=== PATIENT | female | born 1945 | race African-American/Black ===

== ENCOUNTER 2020-11-27 23:42 | Emergency (ER) | payer OTHER ==
--- OUTSIDE RECORDS SUMMARY | 2020-11-27 23:44 | XMS REPORT | Summary of Care ---
:1945 Author Organization [facility] Address [address] [place] [address] Care Team Providers Name Role Phone Jero Phelps Primary Care Provider Reason for Visit Reason Comments Pre-op Clearance [facility] Gasto[facility]ology Encounter Details Date Type Department Care Team Description 08/29/2020 Telephone [facility] DySISmedical Patsy Shelton Pre-op Cleara nce ([place] [facility]- [place] [facility]) [address], [address] [place] [address] Allergies Active Allergy Reactions Severity Noted Date Comments Codeine Nausea and/or 05/19/2019 Vomiting Prochlorperazine Edisylate Other - See comments 2018 Iodine And Iodide Hives, Shortness of High 07/18/2019 Hot feeling. 25 Containing Products Breath, Other - See y ears ago with IV comments contrast. Atorvastatin Calcium Unknown - See 02/26/2020 Myalgi as at 40 mg comments daily. Penicillins Hives 05/19/2019 documented as of this encounter (statuses as of 08/31/2020) Medications Medication Sig Dispensed Refills Start Date End Date Status spironolactone 25 Take 25 mg 0 A ctive mg tablet by mouth daily. diazePAM 5 mg Take 2.5 mg 0 Acti ve tablet by mouth 3 (three) times daily. baclofen 20 mg Take 20 mg 0 Acti ve tablet by mouth as needed. traMADOL 50 mg Take 50 mg 0 Acti ve tablet by mouth 2 (two) times daily. aspirin 81 mg Take 1 90 tablet 3 07/31/2019 Activ e chewable tablet by tabletIndications: mouth daily. Coronary artery disease of [place] heart with stable angina pectoris, unspecified vessel or lesion type, S/P cardiac catheterization, Coronary artery disease involving [place] coronary artery of [place] heart with unstable angina pectoris famotidine (PEPCID) Take 1 60 tablet 3 07/30/2019 Active 20 mg tablet by tabletIndications: mouth every Coronary artery 12 (twelve) disease of [place] hours. heart with stable angina pectoris, unspecified vessel or lesion type, S/P cardiac catheterization, Coronary artery disease involving [place] coronary artery of [place] heart with unstable angina pectoris clopidogrel 75 mg Take 1 30 tablet 11 07/31/2019 A ctive tabletIndications: tablet by Coronary artery mouth daily. disease of [place] heart with stable angina pectoris, unspecified vessel or lesion type, S/P cardiac catheterization, Coronary artery disease involving [place] coronary artery of [place] heart with unstable angina pectoris nitroglycerin 0.[address] Place 1 30 tablet 0 07/30/2019 A ctive mg sublingual tablet under tabletIndications: the tongue Coronary artery every 5 disease of [place] (five) heart with stable minutes as angina pectoris, needed for unspecified vessel Chest pain. or lesion type, S/P cardiac catheterization, Coronary artery disease involving [place] coronary artery of [place] heart with unstable angina pectoris famotidine (PEPCID) Take 1 3 tablet 0 07/18/2019 Discontinued 20 mg tablet tablet by 0 (Duplic ate) mouth every 12 (twelve) hours. Start day before procedure. Take last dose morning of procedure. 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 unstable angina pectoris NSTEMI (non-ST elevated myocardial infarction) 019 Essential hypertension 07/29/2019 documented as of this encounter (statuses as of 08/31/2020) Social History Tobacco Use Types Packs/Day Years Used Date Never Smoker Smokeless Tobacco: Never Used Sex Assigned at Date Recorded Not on file documented as of this encounter Last Filed Vital Signs Not on filedocumented in this encounter Miscellaneous Notes Telephone Encounter - Patsy Shelton MD - 08/31/2020 9:00 PM CDTForm completed in ADC elephone Encounter - Helga Plummer MA - 08/29/2020 9:12 AM CDT Clearance for EGD received. Placed on Dr. Shelton's [facility] desk for review. Will fax back once completed. documented in this encounter Plan of Treatment Date Type Specialty Care Team Description 09/06/2020 [facility] Room 1 - 09/06/2020 [facility] Visit [facility] Room 1 - 02/27/2021 Office Visit Cardiology Patsy Shelton MD [address] [place] [address] [phone] Health Maintenance Due Date Last Done Comments Depression Screening 1955 DTaP,Tdap,and Td Vaccines (1 - Tdap) 1962 Zoster Recombinant Vaccine (SHINGRIX) (1 of 2) 1993 Medicare Wellness Visit 2008 Osteoporosis Screening 2008 PNEUMOCOCCAL VACCINES 65+ (1 of 1 - PPSV23) 2008 INFLUENZA VACCINE (#1) 2020 documented as of this encounter Results Not on filedocumented in this encounter Insurance Payer Benefit Plan / Subscriber ID Effective Phone Address T [facility] [id number] 2018-Pres Medica re HEALTHCARE - HEALTHCARE ent Adv HM O MANAGED MEDICARE ADV MEDICARE HMO [place] BCBS FED [id number] 2019-Pre [phone] O BOX PPO/POS SELECT sent [phone] [place] [address] documented as of this encounter
--- OUTSIDE RECORDS SUMMARY | 2020-11-27 23:44 | XMS REPORT | Summary of Care ---
:1945 Author Organization [facility] [place] Address [address] [place] [address] Care Team Providers Name Role Phone Jero Phelps Primary Care Provider Reason for Visit Reason Comments LAB Covid test, + exposure Encounter Details Date Type Department Care Team Description 10/11/2020 Laboratory Only [facility] Family MelanieGuanako, YOUTH MANAGER [address] [place] [address] Exposure to Medicine - [facility], Ad[facility] Fam Pob I SARS-associated [address] [place] [address] coronaviru s (Primary Drive Dx) [place] [address] Allergies Active Allergy Reactions Severity Noted Date [...] as of this encounter (statuses as of 10/11/2020) Medications Medication Sig Dispensed Refills Start Date End Date Status spironolactone 25 mg Take 25 mg by 0 Active tablet mouth daily. diazePAM 5 mg tablet Take 2.5 mg by 0 Active mouth 3 (three) times daily. baclofen 20 mg tablet Take 20 mg by 0 Active mouth as needed. traMADOL 50 mg tablet Take 50 mg by 0 Active mouth 2 (two) times daily. aspirin 81 mg chewable Take 1 tablet by 90 tablet 3 07/31/2019 Active tabletIndications: mouth daily. Coronary artery disease of [place] heart with stable angina pectoris, unspecified vessel or lesion type, S/P cardiac catheterization, Coronary artery disease involving [place] coronary artery of [place] heart with unstable angina pectoris famotidine (PEPCID) 20 Take 1 tablet by 60 tablet 3 07/30/2019 Active mg tabletIndications: mouth every 12 Coronary artery disease (twelve) hours. of [place] heart with stable angina pectoris, unspecified vessel or lesion type, S/P cardiac catheterization, Coronary artery disease involving [place] coronary artery of [place] heart with unstable angina pectoris clopidogrel 75 mg Take 1 tablet by 30 tablet 11 07/31/2019 Active tabletIndications: mouth daily. Coronary artery disease of [place] heart with stable angina pectoris, unspecified vessel or lesion type, S/P cardiac catheterization, Coronary artery disease involving [place] coronary artery of [place] heart with unstable angina pectoris nitroglycerin 0.[address] 1 tablet 30 tablet 0 07/30/2019 Active sublingual under the tongue tabletIndications: every 5 (five) Coronary artery disease minutes as of [place] heart with needed for Chest stable angina pectoris, pain. 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 documented as of this encounter Last Filed Vital Signs Not on filedocumented in this encounter Nursing Notes Jane Almaguer, HERMES - 10/11/2020 11:20 AM CSTTran Herberth Stevenson is a 75 year old female here for a Rule Out Covid-19 Nasopharyngeal Swab. Patient educated on plan of care for visit, swabbing technique, risks and benefits of test and length oftime to receive results. Verbal consent obtained to perform test. CDC Fact Sheet for Patients provided to patient. All droplet and contact precautions taken with appropriate PPE worn while interacting with patient. - Goggles - N95 Mask - Gloves - Gown RR=20 O2 Sat=97% Patient swabbed using appropriate nasopharyngeal technique, and patient tolerated well. Patient was discharged in stable condition. Jane Terry RN 10/11/2020 11:42 AM FILTER TANK TENDER documented in this encounter Plan of Treatment Date Type Specialty Care Team Description 02/27/2021 Office Visit Cardiology Patsy Shelton MD [address] [place] [address] [phone] Name Type Priority Associated Diagnoses Order S chedujesus COVID-19 (MOLECULAR LAB Routine Exposure to Expected : 10/11/2020, TESTING SARS-associated Expires: 021 NUCLEIC ACID coronavirus AMPLIFICATION) Health Maintenance Due Date Last Done Comments Depression Screening 1955 DTaP,Tdap,and Td Vaccines (1 - Tdap) 1962 Zoster Recombinant Vaccine (SHINGRIX) (1 of 2) 1993 Medicare Wellness Visit 2008 Osteoporosis Screening 2008 PNEUMOCOCCAL VACCINES 65+ (1 of 1 - PPSV23) 2008 INFLUENZA VACCINE (#1) 2020 documented as of this encounter Results Not on filedocumented in this encounter Visit Diagnoses Diagnosis Exposure to SARS-associated coronavirus - Primary documented in this encounter Additional Health Concerns Infection Onset Date Last Indicated Resolved Time COVID-19 Rule Out 10/11/2020 10/11/2020 documented as of this encounter Insurance Payer Benefit Plan / Subscriber ID Effective Phone Address T e Group [facility] [id number] 2018-Prese Medic are Adv HEALTHCARE - HEALTHCARE nt HMO MANAGED MEDICARE ADV MEDICARE HMO documented as of this encounter
--- OUTSIDE RECORDS SUMMARY | 2020-11-27 23:44 | XMS REPORT | Summary of Care ---
:1945 Author Organization [facility] Address [address] [place] [address] Care Team Providers Name Role Phone Jero Phelps Primary Care Provider Reason for Visit (Routine) Status Reason Specialty Diagnoses / Referred By Referred To Procedures Contact Contact Closed Vascular Surgery Diagnoses Dyslipidemia Family history of premature CAD Coronary artery disease involving [place] coronary artery of [place] heart without angina pectoris Essential hypertension Pain of lower extremity, unspecified laterality Patsy Shelton Procedures GLORIA WITH STRESS BY VASCULAR LAB MD [place] [address] [address] Encounter Details Date Type Department Care Team Description 09/06/2020 Appointment [facility] Patsy Shelton MD [address] [address] Pain of lower Cardiology- [facility], [facility] V[facility] Room 1 - extremity, unspecified [address] [place] [address] Allergies Active Allergy Reactions Severity Noted [...] as of this encounter (statuses as of 09/09/2020) Medications Medication Sig Dispensed Refills Start Date [...] tabletIndications: mouth daily. Coronary artery disease of [place] heart with stable angina pectoris, unspecified vessel or lesion type, S/P cardiac catheterization, Coronary artery disease involving [place] coronary artery of [place] heart with unstable angina pectoris famotidine (PEPCID) 20 Take 1 tablet by 60 tablet 3 07/30/2019 Active mg tabletIndications: mouth every 12 Coronary artery disease (twelve) hours. of [place] heart with stable angina pectoris, unspecified vessel or lesion type, S/P cardiac catheterization, Coronary artery disease involving [place] coronary artery of [place] heart with unstable angina pectoris clopidogrel 75 mg Take 1 tablet by 30 tablet 11 07/31/2019 Active tabletIndications: mouth daily. Coronary artery disease of [place] heart with stable angina pectoris, unspecified vessel or lesion type, S/P cardiac catheterization, Coronary artery disease involving [place] coronary artery of [place] heart with unstable angina pectoris nitroglycerin 0.[address] 1 tablet 30 tablet 0 07/30/2019 Active sublingual under the tongue tabletIndications: every 5 (five) Coronary artery disease minutes as of [place] heart with needed for Chest stable angina pectoris, pain. 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/29/2019 with unstable angina pectoris NSTEMI (non-ST elevated myocardial infarction) 019 Essential hypertension 07/29/2019 documented as of this encounter (statuses as of 09/09/2020) Social History Tobacco Use Types Packs/Day Years Used Date Never Smoker Smokeless Tobacco: Never Used Sex Assigned at Date Recorded Not on file documented as of this encounter Last Filed Vital Signs Not on filedocumented in this encounter Plan of Treatment Date Type Specialty Care Team Description 02/27/2021 Office Visit Cardiology Patsy Shelton MD [address] [place] [address] [phone] Health Maintenance Due Date Last Done Comments Depression Screening 1955 DTaP,Tdap,and Td Vaccines (1 - Tdap) 1962 Zoster Recombinant Vaccine (SHINGRIX) (1 of 2) 1993 Medicare Wellness Visit 2008 Osteoporosis Screening 2008 PNEUMOCOCCAL VACCINES 65+ (1 of 1 - PPSV23) 2008 INFLUENZA VACCINE (#1) 2020 documented as of this encounter Results Not on filedocumented in this encounter Visit Diagnoses Diagnosis Pain of lower extremity, unspecified lat erality documented in this encounter Insurance Payer Benefit Plan / Subscriber ID Effective Phone Address T e Group Dates [facility] [id number] 2018-Prese Medic are Adv HEALTHCARE - HEALTHCARE nt HMO MANAGED MEDICARE ADV MEDICARE HMO documented as of this encounter
--- OUTSIDE RECORDS SUMMARY | 2020-11-27 23:44 | XMS REPORT | Clinical Summary ---
:1945 Author Organization [facility] Address [address] [place] [address] Care Team Providers Name Role Phone Asked, Pcp Primary Care Provider Unavailable Allergies Not on File Medications Not on file Active Problems Problem Noted Date Bilateral carpal tunnel syndrome Cervical radiculopathy at C7 Cervical radiculopathy at C8 Social History Tobacco Use Types Packs/Day Years Used Date Never Assessed Sex Assigned at Date Recorded Not on file Last Filed Vital Signs Not on file Plan of Treatment Health Maintenance Due Date Last Done Comments COVID-19 VACCINE (#1) 1959 SHINGLES VACCINES (#1) 1993 65+ PNEUMOCOCCAL VACCINE (1 of 1 - PPSV23) 2008 INFLUENZA VACCINE 06/22/2020 Results Not on fileafter 11/27/2019 (Work) [id number] Advance Directives For more information, please contact: [phone] Type Date Recorded Patient Digital Analyst Explanati on Advance Directives, Living Will and Medical Power of Automotive Design Layout Drafter
--- OUTSIDE RECORDS SUMMARY | 2020-11-27 23:44 | XMS REPORT | Continuity of Care Document ---
:1945 Author Organization [facility] t Address [address] [place] [address] Care Team Providers Name Role Phone Asked, Pcp Primary Care Physician Unavailable Lab, Fam Pob I Attending Clinician Unavailable Pc, Vascular Room 1 - Attending Clinician Unavailable Nikita LOUIS, K.H. Attending Clinician Problems Condition Condition Condition Status Onset Resolution Last Treating Co mments Source Name Details Category Date Date Treatment Clinician Date Bilateral Bilateral Disease Active Praneeth ston carpal carpal Methodi tunnel tunnel st syndrome syndrome Cervical Cervical Disease Active [place] on radiculopa radiculopa Me thodi thy at C8 thy at C8 st Allergies, Adverse Reactions, Alerts This patient has no known allergies or adverse reactions. Social History Social Habit Start Date Stop Date Quantity Comments Source Sex Assigned At Praneeth ston [employer] Medications This patient has no known medications. Procedures This patient has no known procedures. Plan of Care Planned Activity Planned Date Details Comments Source Future Scheduled 2020-06-22 INFLUENZA VACCINE [place] [employer] [facility] Test 00:00:00 [code = INFLUENZA VACCINE] Future Scheduled 2008 65+ PNEUMOCOCCAL [place] [employer] Test 00:00:00 VACCINE (1 of 1 - PPSV23) [code = 65+ PNEUMOCOCCAL VACCINE (1 of 1 - PPSV23)] Future Scheduled 1993 SHINGLES VACCINES (#1) [facility] [employer] Test 00:00:00 [code = SHINGLES VACCINES (#1)] Future Scheduled 1959 COVID-19 VACCINE (#1) [facility] [employer] Test 00:00:00 [code = COVID-19 VACCINE (#1)] Encounters Start End Encounter Admission Attending Care Care Encounter Source Date/Time Date/Time Type Type Clinicians Facility Department ID 2020-10-11 2020-10-11 Laboratory Lab, [facility] [id number] 11:35:42 11:55:42 Only Fam Pob I Health [id number] [place] [id number] Professio [phone] nal 044 Office Building One 2020-09-06 2020-09-06 Analytical Clerk Pc, [facility] [id number] 14:58:24 15:49:38 Visit Vascular [place] [id number] Room 1 - [place] [id number] Professio [phone] nal 059 Building 2020-09-06 2020-09-06 Appointmen Pc, [facility] [id number] 14:57:18 15:49:28 t Vascular [place] [id number] Room 1 - [place] [id number] Professio [phone] nal 059 [facility] 2020-08-29 2020-08-29 Telephone Nikita [facility] [id number] 00:00:00 00:00:00 Patsy Sage [place] [id number] [place] [id number] Professio [phone] nal 9 [facility] Results This patient has no known results.
--- OUTSIDE RECORDS SUMMARY | 2020-11-27 23:44 | XMS REPORT | Summary of Care ---
:1945 Author Organization [facility] Address [address] [place] [address] Care Team Providers Name Role Phone Lenin Jero Primary Care Provider Reason for Visit Reason Comments ULTRASOUND (Routine) Status Reason Specialty Diagnoses / Procedures Referred By C ontact Referred To Contact Closed Cardiology Diagnoses Dyslipidemia Family history of premature CAD Coronary artery disease involving [place] coronary artery of [place] heart without angina pectoris Essential hypertension Pain of lower extremity, unspecified laterality Patsy Shelton Procedures CAROTID DUPLEX BILATERAL BY VASCULAR LAB MD [place] [address] [address] Phone: Encounter Details Date Type Department Care Team Description 09/06/2020 Dovetailer Visit [facility] Pats[facility] Shelton MD [address] [facility] [address] [address] Dyslipidemia; Cardiology- [facility], Adc Vascular Room 1 - Family history of premature CAD; [facility] Coronary art duane disease involving [place] coronary artery of [place] heart without angina pectoris; Drive, [address] Essential hypertension; [place], [place] Pain of lower e xtremity, unspecified laterality [address] Allergies Active Allergy Reactions Severity Noted [...] as of this encounter (statuses as of 09/06/2020) Medications Medication Sig Dispensed Refills Start Date [...] tabletIndications: mouth daily. Coronary artery disease of [place] heart with stable angina pectoris, unspecified vessel or lesion type, S/P cardiac catheterization, Coronary artery disease involving [place] coronary artery of [place] heart with unstable angina pectoris famotidine (PEPCID) 20 Take 1 tablet by 60 tablet 3 07/30/2019 Active mg tabletIndications: mouth every 12 Coronary artery disease (twelve) hours. of [place] heart with stable angina pectoris, unspecified vessel or lesion type, S/P cardiac catheterization, Coronary artery disease involving [place] coronary artery of [place] heart with unstable angina pectoris clopidogrel 75 mg Take 1 tablet by 30 tablet 11 07/31/2019 Active tabletIndications: mouth daily. Coronary artery disease of [place] heart with stable angina pectoris, unspecified vessel or lesion type, S/P cardiac catheterization, Coronary artery disease involving [place] coronary artery of [place] heart with unstable angina pectoris nitroglycerin 0.[address] 1 tablet 30 tablet 0 07/30/2019 Active sublingual under the tongue tabletIndications: every 5 (five) Coronary artery disease minutes as of [place] heart with needed for Chest stable angina pectoris, pain. 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 07/29/2019 with unstable angina pectoris NSTEMI (non-ST elevated myocardial infarction) 019 Essential hypertension 07/29/2019 documented as of this encounter (statuses as of 09/06/2020) Social History Tobacco Use Types Packs/Day Years Used Date Never Smoker Smokeless Tobacco: Never Used Sex Assigned at Date Recorded Not on file documented as of this encounter Last Filed Vital Signs Not on filedocumented in this encounter Plan of Treatment Date Type Specialty Care Team Description 02/27/2021 Office Visit Cardiology Patsy Shelton MD [address] [place] [phone] Health Maintenance Due Date Last Done Comments Depression Screening 1955 DTaP,Tdap,and Td Vaccines (1 - Tdap) 1962 Zoster Recombinant Vaccine (SHINGRIX) (1 of 2) 1993 Medicare Wellness Visit 2008 Osteoporosis Screening 2008 PNEUMOCOCCAL VACCINES 65+ (1 of 1 - PPSV23) 2008 INFLUENZA VACCINE (#1) 2020 documented as of this encounter Results Not on filedocumented in this encounter Visit Diagnoses Diagnosis Dyslipidemia Other and unspecified hyperlipidemia Family history of premature CAD Family history of ischemic heart disease Coronary artery disease involving [place] coronary artery of [place] heart without angina pectoris Essential hypertension Unspecified essential hypertension Pain of lower extremity, unspecified lat erality documented in this encounter Insurance Payer Benefit Plan / Subscriber ID Effective Phone Address T e Group [facility] [id number] 2018-Prese Medic are Adv HEALTHCARE - HEALTHCARE nt HMO MANAGED MEDICARE ADV MEDICARE HMO documented as of this encounter
[2020-11-28] MEDS ORDERED: MORPHINE 2 MG/ML SYR ONE (00:37)
[2020-11-28] MEDS ORDERED: ONDANSETRON 4 MG/2 ML VIAL ONE (00:38)
[2020-11-28] MEDS ORDERED: NA CHLORIDE 0.9% 1,000 ML ONE (00:38)
[2020-11-28] MEDS ORDERED: KETOROLAC 30 MG/ML INJ ONE (00:38)
[2020-11-28] MEDS ORDERED: NA CHLORIDE 0.9% 500 ML ONE (00:38)
[2020-11-28 01:16] LABS: Urine Blood NEGATIVE (NEG); Urine Glucose NEGATIVE (NEG); Urine Protein NEGATIVE (NEG); Urine Specific Gravity 1.015 (1.005-1.030)
[2020-11-28 01:21] LABS: Absolute Lymphocytes (CBC) 1.8 K/uL (0.7-4.9); Basophils % 0.7 % (0-1.3); Hematocrit 38.7 % (36.0-45.0); Lymphocytes % 25.9 % (15.3-44.8); MPV 7.3 fL (7.6-11.3)
[2020-11-28 01:37] LABS: ALT/SGPT 11 U/L (12-78); AST/SGOT 14 U/L (15-37); Albumin 3.1 g/dL (3.4-5.0); Alkaline Phosphatase 113 U/L (45-117); BUN Blood Urea Nitrogen 12 mg/dL (7-18); Bicarbonate 31 mmol/L (21-32); Bilirubin Direct < 0.1 mg/dL (0-0.2); Bilirubin Total 0.2 mg/dL (0.2-1.0); Glucose Level 93 mg/dL (74-106); Lipase 99 U/L (73-393); Potassium 3.9 mmol/L (3.5-5.1); Protein, Total 7.6 g/dL (6.4-8.2); Sodium Level 145 mmol/L (136-145)
[2020-11-28] MEDS ORDERED: dexAMETHasone 10 MG/ML VIAL ONE (01:53)
[2020-11-28] MEDS ORDERED: DIAZEPAM 5 MG TABLET ONE (01:53)
[2020-11-28] MEDS ORDERED: LIDOCAINE 4% PATCH ONE (03:04)
--- NOTE | 2020-11-28 03:51 | EDPHYS ---
Physician Documentation [facility] Name: Tran Stevenson Age: 75 yrs Sex: Female : 1945 Arrival Date: 11/27/2020 Time: 23:45 Bed 24 Private MD: Davy Phelps B ED Physician Shaquille Smith HPI: 11/28 00:09 This 75 yrs old Black Female presents to ER via Unassigned with complaints of Back Pain.kacie 00:09 The patient presents with pain that is acute, with no known mechanism of injury. The kacie symptoms are located in the right mid back and right low back. Onset: The symptoms/episode began/occurred 3 day(s) ago. The pain radiates to the suprapubic area, posterior aspect of right lateral abdomen, anterior aspect of right lateral abdomen and right lower quadrant. Associated signs and symptoms: The patient has no apparent associated signs or symptoms. The problem was sustained from unknown cause. Modifying factors: The patient symptoms are alleviated by nothing, the patient symptoms are aggravated by movement, supine position, walking. Severity of symptoms: At their worst the symptoms were mild, moderate, in the emergency department the symptoms are unchanged. The patient has not experienced similar symptoms in the past. Historical: - Allergies: 11/27 23:46 ACETAMINOPHEN; sg 23:46 Darvocet-N 100; sg 23:46 Darvon; sg 23:46 PENICILLINS; sg 23:46 PHENOTHIAZINES; sg 23:46 Propoxyphene HCl; sg - PMHx: 23:46 cervical stenosis; FIBROCYSTIC DISEASE; Hypertension; Osteoporosis; sciatica; sg - PSHx: 23:46 Hysterectomy; bilateral lumpectomy; sg - Immunization history:: Adult Immunizations up to date. - Social history:: Smoking status: Patient denies any tobacco usage or history of. - Family history:: not pertinent. ROS: 11/28 00:09 Constitutional: Negative for fever, chills, and weight loss, Eyes: Negative for injury, kacie pain, redness, and discharge, ENT: Negative for injury, pain, and discharge, Neck: Negative for injury, pain, and swelling, Cardiovascular: Negative for chest pain, palpitations, and edema, Respiratory: Negative for shortness of breath, cough, wheezing, and pleuritic chest pain, Abdomen/GI: Negative for abdominal pain, nausea, vomiting, diarrhea, and constipation, : Negative for injury, bleeding, discharge, and swelling, MS/Extremity: Negative for injury and deformity, Skin: Negative for injury, rash, and discoloration, Neuro: Negative for headache, weakness, numbness, tingling, and seizure, Psych: Negative for depression, anxiety, suicide ideation, homicidal ideation, and hallucinations, Allergy/Immunology: Negative for hives, rash, and allergies, Endocrine: Negative for neck swelling, polydipsia, polyuria, polyphagia, and marked weight changes, Hematologic/Lymphatic: Negative for swollen nodes, abnormal bleeding, and unusual bruising. Back: Positive for flank pain, on the right. Exam: 00:09 Constitutional: This is a well developed, well nourished patient who is awake, alert, kacie and in no acute distress. Head/Face: Normocephalic, atraumatic. Eyes: Pupils equal round and reactive to light, extra-ocular motions intact. Lids and lashes normal. Conjunctiva and sclera are non-icteric and not injected. Cornea within normal limits. Periorbital areas with no swelling, redness, or edema. ENT: Nares patent. No nasal discharge, no septal abnormalities noted. Tympanic membranes are normal and external auditory canals are clear. Oropharynx with no redness, swelling, or masses, exudates, or evidence of obstruction, uvula midline. Mucous membranes moist. Neck: Trachea midline, no thyromegaly or masses palpated, and no cervical lymphadenopathy. Supple, full range of motion without nuchal rigidity, or vertebral point tenderness. No Meningismus. Chest/axilla: Normal chest wall appearance and motion. Nontender with no deformity. No lesions are appreciated. Cardiovascular: Regular rate and rhythm with a normal S1 and S2. No gallops, murmurs, or rubs. Normal PMI, no JVD. No pulse deficits. Respiratory: Lungs have equal breath sounds bilaterally, clear to auscultation and percussion. No rales, rhonchi or wheezes noted. No increased work of breathing, no retractions or nasal flaring. Abdomen/GI: Soft, non-tender, with normal bowel sounds. No distension or tympany. No guarding or rebound. No evidence of tenderness throughout. Female : Normal external genitalia. Skin: Warm, dry with normal turgor. Normal color with no rashes, no lesions, and no evidence of cellulitis. MS/ Extremity: Pulses equal, no cyanosis. Neurovascular intact. Full, normal range of motion. Neuro: Awake and alert, GCS 15, oriented to person, place, time, and situation. Cranial nerves II-XII grossly intact. Motor strength 5/5 in all extremities. Sensory grossly intact. Cerebellar exam normal. Normal gait. Psych: Awake, alert, with orientation to person, place and time. Behavior, mood, and affect are within normal limits. 00:09 Back: pain, that is moderate, ROM is normal, normal spinal alignment noted, CVA tenderness, that is moderate, is noted on the right, muscle spasm, is not present. 03:47 Skin: no rash present. [facility] Vital Signs: 11/27 23:45 BP 145 / 92; Pulse 89; Resp 18; Temp 98.2; Pulse Ox 100% ; Pain 9/10; jv1 11/28 00:45 BP 140 / 89; Pulse 88; Resp 18; Temp 98.0; Pulse Ox 97% ; Pain 8/10; jv1 01:45 BP 135 / 87; Pulse 85; Resp 18; Temp 97.8; Pulse Ox 100% ; jv1 02:45 BP 131 / 87; Pulse 78; Resp 18; Temp 97.5; Pulse Ox 100% ; jv1 03:45 BP 134 / 89; Pulse 85; Resp 18; Temp 98.1; Pulse Ox 100% ; jv1 04:20 BP 137 / 77; Pulse 79; Resp 18; Temp 98; Pulse Ox 100% ; Pain 2/10; jv1 MDM: 11/27 23:53 Patient medically screened. [facility] 11/28 00:11 Differential diagnosis: Fatigue Renal Infarction Scoliosis sprain, Ureterolithiasis kacie vertebral fracture. Data reviewed: vital signs, nurses notes, EMS record, lab test result(s), radiologic studies, CT scan. Data interpreted: certification officer: rate is 78 beats/min, rhythm is regular, Pulse oximetry: on room air is 96 %. Test interpretation: by ED physician or midlevel provider: plain radiologic studies. Counseling: I had a detailed discussion with the patient and/or guardian regarding: the historical points, exam findings, and any diagnostic results supporting the discharge/admit diagnosis, lab results, radiology results. 11/28 00:08 Order name: Basic Metabolic Panel; Complete Time: 01:47 [facility] 11/28 00:08 Order name: CBC with Diff; Complete Time: 01:27 [facility] 11/28 00:08 Order name: Hepatic Function; Complete Time: 01:47 [facility] 11/28 00:08 Order name: Lipase; Complete Time: 01:47 [facility] 11/28 00:08 Order name: Urine Culture [facility] 11/28 01:11 Order name: Urine Dipstick--Ancillary (enter results); Complete Time: 01:27 mw2 11/28 00:08 Order name: CT Stone Protocol [facility] 11/28 01:25 Order name: Hip Right 2 View XRAY [facility] 11/28 01:25 Order name: Sed Rate; Complete Time: 02:40 [facility] 11/28 01:33 Order name: CT Abd/Pelvis - IV Contrast Only: scan through right hip, upper thigh [facility] 11/28 00:08 Order name: IV Saline Lock; Complete Time: 01:10 [facility] 11/28 00:08 Order name: Labs collected and sent; Complete Time: 03:04 [facility] 11/28 00:08 Order name: Urine Dipstick-Ancillary (obtain specimen); Complete Time: 01:10 [facility] Administered Medications: 00:45 Drug: Zofran (Ondansetron) 4 mg Route: IVP; Site: left antecubital; jv1 01:39 Follow up: Response: No adverse reaction jv1 00:48 Drug: morphine 2 mg {Note: x1.} Route: IVP; Site: left antecubital; jv1 01:30 Follow up: Response: No adverse reaction jv1 00:50 Drug: TORadol - Ketorolac 15 mg Route: IVP; Site: left antecubital; jv1 01:39 Follow up: Response: No adverse reaction; Pain is decreased jv1 00:55 Drug: NS 0.9% 500 ml Route: IV; Rate: bolus; Site: left antecubital; jv1 01:20 Follow up: Response: No adverse reaction; IV Status: Completed infusion jv1 01:20 Drug: NS 0.9% 1000 ml Route: IV; Rate: 125 ml/hr; Site: left antecubital; mg2 04:20 Follow up: Response: No adverse reaction; IV Status: Order to discontinue infusion jv1 01:40 Drug: Valium 5 mg Route: PO; jv1 03:19 Follow up: Response: No adverse reaction jv1 01:41 Drug: Decadron - Dexamethasone 10 mg {Note: admistered slow over 2 mins.} Route: IVP; jv1 Site: left antecubital; 03:20 Follow up: Response: No adverse reaction jv1 02:50 Drug: Lidoderm 5 % (700 mg/patch) 1 patches {Note: given the lidocain patch 4% as per jv1 doctor's instructions.} Route: Topical; Site: affected area; 04:23 Follow up: Response: No adverse reaction; Pain is decreased jv1 04:29 Follow up: Response: No adverse reaction; Pain is decreased jv1 Disposition: 11/28/20 03:50 Discharged to Home. Impression: Low back pain, Abdominal tenderness, Sciatica, right side, Pain in right hip - arthritic. - Condition is Stable. - Discharge Instructions: Abdominal Pain, Adult, Joint Pain, Arthritis, Back Pain, Adult, Chronic Back Pain, Musculoskeletal Pain, Sciatica, Cryotherapy, Olky-ny-Hrlo, Abdominal Pain, Adult, Dqag-lo-Ielf, Back Pain, Adult, Iiuz-wf-Widp, Hip Pain, Sciatica, Vkqg-vr-Ssok, Joint Pain, Lrri-uv-Mctt. - Prescriptions for dexamethasone 2 mg Oral tablet - take 1 tablet by ORAL route 2 times per day; 10 tablet. Valium 2 mg Oral Tablet - take 1 tablet by ORAL route every 8 hours As needed; 20 tablet. Tramadol 50 mg Oral Tablet - take 1 tablet by ORAL route every 8 hours as needed; 26 tablet. Motrin IB 200 mg Oral Tablet - take 1 tablet by ORAL route every 6 hours As needed as needed with food; 2 tablet. - Medication Reconciliation Form, Thank You Letter, Antibiotic Education, Prescription Opioid Use form. - Follow up: Davy Phelps MD; When: 1 - 2 days; Reason: Recheck today's complaints, Continuance of care, Re-evaluation by your physician. Follow up: Sergio Ellis MD; When: 2 - 3 days; Reason: Recheck today's complaints, Re-evaluation by your physician. - Problem is new. - Symptoms have improved. Signatures: Dispatcher [employer] EDWeston Pagan RN RN sg Anderson, Corey, MD MD cha Antunez, Elena, RN Orlin Colindres ea, RN Elodia Allen, RN RN jv1 Corrections: (The following items were deleted from the chart) 01:42 01:31 Abdomen Pelvis W Con+CT.RAD.BRZ ordered. EDMS EDMS 04:49 03:50 11/28/2020 03:50 Discharged to Home. Impression: Low back pain; Abdominal sg tenderness; Sciatica, right side; Pain in right hip - arthritic. Condition is Stable. Forms are Medication Reconciliation Form, Thank You Letter, Antibiotic Education, Prescription Opioid Use. Follow up: Davy Phelps; When: 1 - 2 days; Reason: Recheck today's complaints, Continuance of care, Re-evaluation by your physician. Follow up: Sergio Ellis; When: 2 - 3 days; Reason: Recheck today's complaints, Re-evaluation by your physician. Problem is new. Symptoms have improved. kacie
--- NOTE | 2020-11-28 03:51 | ER ---
Nurse's Notes [facility] Name: Tran Stevenson Age: 75 yrs Sex: Female : 1945 Arrival Date: 11/27/2020 Time: 23:45 Bed 24 Private MD: Davy Phelps B Diagnosis: Low back pain;Abdominal tenderness;Sciatica, right side;Pain in right hip-arthritic Presentation: 11/27 23:45 Chief complaint: EMS states: pt has back pain, reports lower back for several days, no sg injury or trauma reported. Coronavirus screen: Client denies travel out of the [place] in the last 14 days. At this time, the client does not indicate any symptoms associated with coronavirus-19. Ebola Screen: Patient negative for fever greater than or equal to 101.5 degrees Fahrenheit, and additional compatible Ebola Virus Disease symptoms Patient denies exposure to infectious person. Patient denies travel to an Ebola-affected area in the 21 days before illness onset. No symptoms or risks identified at this time. Initial Sepsis Screen: Does the patient meet any 2 criteria? No. Patient's initial sepsis screen is negative. Does the patient have a suspected source of infection? No. Patient's initial sepsis screen is negative. Risk Assessment: Do you want to hurt yourself or someone else? Patient reports no desire to harm self or others. Onset of symptoms was November 25, 2020. Care prior to arrival: None. Transition of care: patient was not received from another setting of care. 23:45 Method Of Arrival: EMS: [facility] sg 23:45 Acuity: CHUY 3 sg Historical: - Allergies: 23:46 ACETAMINOPHEN; sg 23:46 Darvocet-N 100; sg 23:46 Darvon; sg 23:46 PENICILLINS; sg 23:46 PHENOTHIAZINES; sg 23:46 Propoxyphene HCl; sg - PMHx: 23:46 cervical stenosis; FIBROCYSTIC DISEASE; Hypertension; Osteoporosis; sciatica; sg - PSHx: 23:46 Hysterectomy; bilateral lumpectomy; sg - Immunization history:: Adult Immunizations up to date. - Social history:: Smoking status: Patient denies any tobacco usage or history of. - Family history:: not pertinent. Screenin/07 00:00 Abuse screen: Denies threats or abuse. Denies injuries from another. Nutritional jv1 screening: No deficits noted. Tuberculosis screening: No symptoms or risk factors identified. Fall Risk None identified. Assessment: 11/27 23:45 General: Appears in no apparent distress. uncomfortable, well groomed, well developed, jv1 Behavior is calm, cooperative, appropriate for age. Pain: Complains of pain in right low back and right mid back Pain radiates to abdomen and right lower quadrant and anterior aspect of right lateral abdomen and posterior aspect of right lateral abdomen and suprapubic area Pain currently is 9 out of 10 on a pain scale. Quality of pain is described as aching. Neuro: Level of Consciousness is awake, alert, obeys commands, Oriented to person, place, time, situation, Appropriate for age Miter Operator are equal bilaterally Moves all extremities. Cardiovascular: Denies chest pain. Respiratory: Airway is patent Respiratory effort is even, unlabored, Respiratory pattern is regular, symmetrical, Breath sounds are clear bilaterally. GI: Abdomen is round non-distended, Bowel sounds present X 4 quads. Abd is soft and non tender X 4 quads. : No signs and/or symptoms were reported regarding the genitourinary system. EENT: No signs and/or symptoms were reported regarding the EENT system. Derm: No signs and/or symptoms reported regarding the dermatologic system. Skin is intact, is healthy with good turgor. Musculoskeletal:. Musculoskeletal:. 11/28 01:00 Reassessment: Patient appears in no apparent distress at this time. No changes from jv1 previously documented assessment. Patient and/or family updated on plan of care and expected duration. Pain level reassessed. Patient is alert, oriented x 3, equal unlabored respirations, skin warm/dry/pink. assisted to use bedpan. 02:00 Reassessment: Patient appears in no apparent distress at this time. No changes from jv1 previously documented assessment. Patient and/or family updated on plan of care and expected duration. Pain level reassessed. Patient is alert, oriented x 3, equal unlabored respirations, skin warm/dry/pink. assisted to use bedpan. 03:30 Reassessment: Patient appears in no apparent distress at this time. No changes from jv1 previously documented assessment. Patient and/or family updated on plan of care and expected duration. Pain level reassessed. Patient is alert, oriented x 3, equal unlabored respirations, skin warm/dry/pink. assisted to use bedpan. 04:20 Reassessment: Patient appears in no apparent distress at this time. Patient and/or jv1 family updated on plan of care and expected duration. Pain level reassessed. Patient is alert, oriented x 3, equal unlabored respirations, skin warm/dry/pink. assisted pt to stand and then walk a little then sit on the wheelchair. She was able to do it with min pain. 2/10 Patient states feeling better. Patient states symptoms have improved. Vital Signs: 11/27 23:45 BP 145 / 92; Pulse 89; Resp 18; Temp 98.2; Pulse Ox 100% ; Pain 9/10; jv1 11/28 00:45 BP 140 / 89; Pulse 88; Resp 18; Temp 98.0; Pulse Ox 97% ; Pain 8/10; jv1 01:45 BP 135 / 87; Pulse 85; Resp 18; Temp 97.8; Pulse Ox 100% ; jv1 02:45 BP 131 / 87; Pulse 78; Resp 18; Temp 97.5; Pulse Ox 100% ; jv1 03:45 BP 134 / 89; Pulse 85; Resp 18; Temp 98.1; Pulse Ox 100% ; jv1 04:20 BP 137 / 77; Pulse 79; Resp 18; Temp 98; Pulse Ox 100% ; Pain 2/10; jv1 ED Course: 11/27 23:45 Patient arrived in ED. sg 23:45 Davy Phelps MD is Private Physician. sg 23:46 Arm band placed on. sg 23:53 Shaquille Smith MD is Attending Physician. kacie 11/28 00:00 Patient has correct armband on for positive identification. Bed in low position. Call jv1 light in reach. Side rails up X2. 00:28 Triage completed. sg 00:45 CT Stone Protocol In Process Unspecified. EDMS 02:03 Hip Right 2 View XRAY In Process Unspecified. EDMS 02:43 CT Abd/Pelvis - IV Contrast Only: scan through right hip, upper thigh In Process EDMS Unspecified. 03:48 Davy Phelps MD is Referral Physician. kacie 03:50 Sergio Ellis MD is Referral Physician. kacie 04:27 No provider procedures requiring assistance completed. Inserted IV discontinued, jv1 intact, bleeding controlled, No redness/swelling at site. Pressure dressing applied. Administered Medications: 00:45 Drug: Zofran (Ondansetron) 4 mg Route: IVP; Site: left antecubital; jv1 01:39 Follow up: Response: No adverse reaction jv1 00:48 Drug: morphine 2 mg {Note: x1.} Route: IVP; Site: left antecubital; jv1 01:30 Follow up: Response: No adverse reaction jv1 00:50 Drug: TORadol - Ketorolac 15 mg Route: IVP; Site: left antecubital; jv1 01:39 Follow up: Response: No adverse reaction; Pain is decreased jv1 00:55 Drug: NS 0.9% 500 ml Route: IV; Rate: bolus; Site: left antecubital; jv1 01:20 Follow up: Response: No adverse reaction; IV Status: Completed infusion jv1 01:20 Drug: NS 0.9% 1000 ml Route: IV; Rate: 125 ml/hr; Site: left antecubital; mg2 04:20 Follow up: Response: No adverse reaction; IV Status: Order to discontinue infusion jv1 01:40 Drug: Valium 5 mg Route: PO; jv1 03:19 Follow up: Response: No adverse reaction jv1 01:41 Drug: Decadron - Dexamethasone 10 mg {Note: admistered slow over 2 mins.} Route: IVP; jv1 Site: left antecubital; 03:20 Follow up: Response: No adverse reaction jv1 02:50 Drug: Lidoderm 5 % (700 mg/patch) 1 patches {Note: given the lidocain patch 4% as per jv1 doctor's instructions.} Route: Topical; Site: affected area; 04:23 Follow up: Response: No adverse reaction; Pain is decreased jv1 04:29 Follow up: Response: No adverse reaction; Pain is decreased jv1 Outcome: 03:50 Discharge ordered by . kacie 04:27 Discharged to home via wheelchair. jv1 04:27 Condition: stable 04:27 Discharge instructions given to patient, Instructed on discharge instructions, follow up and referral plans. medication usage, Demonstrated understanding of instructions, follow-up care, medications, Prescriptions given X 4. 04:49 Patient left the ED. sg Signatures: Dispatcher [employer] EDMS Weston Lowery RN RN Shaquille Alcala MD MD cha Gardose, Michele RN RN mg2 Elodia Lloyd RN RN jv1 Corrections: (The following items were deleted from the chart) 00:29 11/27 23:45 Acuity: CHUY 4 cintia chamberlain
--- NOTE | 2020-11-28 08:52 | RAD REPORT ---
EXAM DESCRIPTION: RAD - Hip Right 2 View - 11/28/2020 2:03 am CLINICAL HISTORY: PAIN COMPARISON: Stone Protocol dated 11/28/2020; Abdomen Pelvis W Contrast dated 11/28/2020 FINDINGS: Moderately severe osteoarthritic changes affect the right hip. No acute fracture, dislocat ion or AVN observed.
--- NOTE | 2020-11-28 18:40 | RAD REPORT ---
EXAM DESCRIPTION: CT ABDOMEN AND PELVIS WITH CONTRAST CLINICAL HISTORY: Right hip pain;Abd pain;Flank pain COMPARISON: 11/28/2020 TECHNIQUE: CT of the abdomen and pelvis performed following IV administration of iodinated contras t.. FINDINGS: Lung Bases: Minimal bibasilar opacities may be related to dependent atelectasis. Bones: Mild joint space narrowing of the hips bilaterally. Degenerative endplate spondylosis and face t arthropathy of the spine. Abdomen: Liver: Enhancing hyperdensity in the right hepatic lobe is stable likely representing a flash filling hemangioma. Hepatic cysts are stable. Mild prominence of the common bile duct likely related to prio r cholecystectomy.. Gallbladder: Prior cholecystectomy. Spleen, Pancreas, and Adrenal Glands: The spleen, pancreas, and adrenal glands are unremarkable. Kidneys: No hydronephrosis or obstructing calculus. Right renal cyst. Vasculature: Aortoiliac atherosclerosis. IVC is unremarkable. The portal vein is patent. The proxim al visceral and renal arteries are patent. Stomach: The stomach and duodenum have normal course. Other: No free intraperitoneal air. Trace free fluid. Tiny fat-containing umbilical hernia. Pelvis: Bladder: Urinary bladder is unremarkable. Bowel: No dilated loops of large or small bowel. Appendix: Normal appendix. Pelvis: Prior hysterectomy. IMPRESSION: 1. No acute inflammatory or obstructive process identified. This exam was performed according to our departmental dose-optimization program, which includes autom ated exposure control, adjustment of the mA and/or kV according to patient size and/or use of iterati ve reconstruction technique. Electronically signed by: Jomar Magaña 11/28/2020 3:20 AM BAIL BONDING AGENT Due to temporary technical issues with the PACS/Fluency reporting system, reports are being signed by the in house radiologists without review as a courtesy to insure prompt reporting. The interpreting radiologist is fully responsible for the content of the report.
--- NOTE | 2020-11-28 19:23 | RAD REPORT ---
EXAM DESCRIPTION: CT ABDOMEN AND PELVIS WITH CONTRAST CLINICAL HISTORY: Right hip pain;Abd pain;Flank pain COMPARISON: 11/28/2020 TECHNIQUE: CT of the abdomen and pelvis performed following IV administration of iodinated contras t.. FINDINGS: Lung Bases: Minimal bibasilar opacities may be related to dependent atelectasis. Bones: Mild joint space narrowing of the hips bilaterally. Degenerative endplate spondylosis and face t arthropathy of the spine. Abdomen: Liver: Enhancing hyperdensity in the right hepatic lobe is stable likely representing a flash filling hemangioma. Hepatic cysts are stable. Mild prominence of the common bile duct likely related to prio r cholecystectomy.. Gallbladder: Prior cholecystectomy. Spleen, Pancreas, and Adrenal Glands: The spleen, pancreas, and adrenal glands are unremarkable. Kidneys: No hydronephrosis or obstructing calculus. Right renal cyst. Vasculature: Aortoiliac atherosclerosis. IVC is unremarkable. The portal vein is patent. The proxim al visceral and renal arteries are patent. Stomach: The stomach and duodenum have normal course. Other: No free intraperitoneal air. Trace free fluid. Tiny fat-containing umbilical hernia. Pelvis: Bladder: Urinary bladder is unremarkable. Bowel: No dilated loops of large or small bowel. Appendix: Normal appendix. Pelvis: Prior hysterectomy. IMPRESSION: 1. No acute inflammatory or obstructive process identified. This exam was performed according to our departmental dose-optimization program, which includes autom ated exposure control, adjustment of the mA and/or kV according to patient size and/or use of iterati ve reconstruction technique. Electronically signed by: Jomar Magaña 11/28/2020 3:20 AM SLOT MACHINE MECHANIC Due to temporary technical issues with the PACS/Fluency reporting system, reports are being signed by the in house radiologists without review as a courtesy to insure prompt reporting. The interpreting radiologist is fully responsible for the content of the report.
== END 2020-11-28 04:49 | disposition home or self-care (01) ==
LOC: ER 23:42
DX: M54.31 Sciatica, right side (principal); M25.551 Pain in right hip; R10.819 Abdominal tenderness, unspecified site; I10 Essential (primary) hypertension; Z88.0 Allergy status to penicillin; Z88.5 Allergy status to narcotic agent; Z88.6 Allergy status to analgesic agent; Z88.8 Allergy status to other drugs, medicaments and biological substances
CPT/HCPCS: 96361; 87088; 85025; 87086; 80048; 36415; 80076; 85652; 81003; 83690; 76377; 74176; 74177; 73502; 96375; 96374; 99284; Q9967; J1100; J2270; J7040; J7030; J2405